=== PATIENT | female | born 1970 | race Caucasian/White ===

== ENCOUNTER → 2024-12-31 13:31 | Outpatient (REF) | payer BC, SELFPAY ==
[2024-12-31 14:19] LABS: INR 2.54; PT 27.4 Sec (11.4-14.6)
== END ==
LOC: REG 13:31
PROVIDERS: ATTENDING PHYSICIAN Internal Medicine Hematology & Oncology; FAMILY PHYSICIAN Family Medicine
DX: D68.59 Other primary thrombophilia (principal); D50.9 Iron deficiency anemia, unspecified; Z12.31 Encounter for screening mammogram for malignant neoplasm of breast; R92.2 Inconclusive mammogram; J30.9 Allergic rhinitis, unspecified
CPT/HCPCS: 36415; 85610